=== PATIENT | female | born 1975 | race Caucasian/White ===

== ENCOUNTER 2017-11-06 17:26 | Emergency (ER) | payer OTHER ==
[~2017-11-06] VITALS: Ht 165.1 cm; Wt 64.1 kg
[2017-11-06 18:16] LABS: HEMATOCRIT 41.4 % (36.0-46.0); MCHC 33.8 G/DL (30.0-36.0); MCV 88.7 FL (83-99); RBC DIS.WIDTH-CV 13.8 % (11.8-14.6); RBC DIS.WIDTH-SD 44.7 % (39-53); RED BLOOD COUNT 4.67 M/uL (3.80-5.20); WHITE BLOOD COUNT 11.3 K/uL (4.1-10.2)
[2017-11-06 18:29] LABS: ALBUMIN 4.5 g/dL (3.2-4.8)
[2017-11-06 18:30] LABS: CHLORIDE 106 mEq/L (99-109); POTASSIUM 4.1 mEq/L (3.7-5.4); SODIUM 138 mEq/L (136-147)
[2017-11-06 18:32] LABS: GLUCOSE 137 mg/dL (70-99); TOTAL PROTEIN 7.3 g/dL (6.4-8.3)
[2017-11-06 18:34] LABS: TOTAL BILIRUBIN 0.7 mg/dL (0.0-1.0)
[2017-11-06 18:35] LABS: ALKALINE PHOSPHATASE 58 IU/L (3-129)
[2017-11-06 18:36] LABS: CREATININE 0.7 mg/dL (0.6-1.3); GFR ESTIMATE (CALCULATED) > 59 mL/min/
[2017-11-06 18:37] LABS: AST (GOT) 17 IU/L (2-34); UREA NITROGEN (BUN) 15 mg/dL (9-23)
[2017-11-06 18:38] LABS: ALT (GPT) 14 IU/L (3-49)
[2017-11-06 18:39] LABS: LIPASE 12 U/L (1.0-51.0)
[2017-11-06 18:41] LABS: APPEARANCE SL.HAZY ((CLEAR)); BILIRUBIN NEGATIVE; BLOOD MODERATE; COLOR YELLOW ((YELLOW)); GLUCOSE (STRIP) NEGATIVE; KETONES 20; LEUKOCYTES NEGATIVE; NITRITE NEGATIVE; PROTEIN (STRIP) 30; SPECIFIC GRAVITY 1.014 (1.000-1.030); UROBILINOGEN 0.2 MG/DL (0.2-1.0)
[2017-11-06 19:00] LABS: BACTERIA NONE SEEN /HPF; EPITHELIAL CELLS 1+ /HPF; MUCUS TRACE /LPF; RED BLOOD CELLS TNTC /HPF (0-5); WHITE BLOOD CELLS 0-5 /HPF (0-5)
[2017-11-06 19:10] LABS: QUANTITATIVE HCG < 4.0 MIU/ML
[2017-11-06 19:13] LABS: PLAT.SUFFICIENCY ADEQUATE; PLATELET COUNT 300 K/uL (156-360)
[2017-11-06] MEDS ORDERED: PERCOCET 5/31 TABLET PO (21:00)
[2017-11-06] MEDS ORDERED: IBUPROFEN800 MG PO (21:00)
[2017-11-06] MEDS ORDERED: ZOFRAN ODT4 MG PO (21:00)
[2017-11-06] MEDS ORDERED: FLOMAX0.4 MG PO (21:00)
[2017-11-06 21:54] VITALS: BP 117/77
== END 2017-11-06 21:55 | disposition home or self-care (01) ==
LOC: EME 17:26
PROVIDERS: Nurse Practitioner Family
DX: N20.0 Calculus of kidney (principal); R31.9 Hematuria, unspecified; F17.200 Nicotine dependence, unspecified, uncomplicated
CPT/HCPCS: 74176; 80053; 81003; 83690; 84702; 85027; 99281; 99285